=== PATIENT | female | born 1955 | race Caucasian/White ===

== ENCOUNTER 2018-02-17 12:57 | Emergency (ER) | payer MEDICARE, OTHER, MEDICAID ==
[2018-02-17 13:31] VITALS: RESP 18
[2018-02-17] MEDS ORDERED: KETOROLAC TROMETHAMINE 30 MG/ML SOL IM ONE (13:56)
[2018-02-17] MEDS ORDERED: KETOROLAC TROMETHAMINE 30 MG/ML SOL ONE (13:57)
[2018-02-17] MEDS ORDERED: CYCLOBENZAPRINE 10 MG TAB PO ONE (14:01)
[2018-02-17] MEDS ORDERED: CYCLOBENZAPRINE 10 MG TAB ONE (14:02)
[2018-02-17 15:56] VITALS: BP 170/106; PULSE 76; O2SAT 100
== END 2018-02-17 14:09 | disposition home or self-care (01) | DRG 556 ==
LOC: ED 12:57
DX: M79.603 Pain in arm, unspecified (principal); M54.2 Cervicalgia; Z72.0 Tobacco use
CPT/HCPCS: 96372; 99282; 99283; J1885; A9270-GY

== ENCOUNTER 2018-02-27 11:13 | Emergency (ER) | payer MEDICARE, OTHER, MEDICAID ==
[2018-02-27 11:20] VITALS: BP 152/79; PULSE 80; RESP 18; TEMP 97; O2SAT 98
== END 2018-02-27 13:09 | disposition short-term general hospital (02) | DRG 125 ==
LOC: ED 11:13
DX: H54.62 Unqualified visual loss, left eye, normal vision right eye (principal); Z94.7 Corneal transplant status; I10 Essential (primary) hypertension
CPT/HCPCS: 99283

== ENCOUNTER 2018-09-18 02:08 | Emergency (ER) | payer MEDICARE, MEDICAID ==
[2018-09-18 02:14] VITALS: RESP 16
[2018-09-18 03:05] LABS: ALBUMIN 3.2 gm/dl (3.4-5.0); BILIRUBIN,TOTAL 0.3 mg/dl (0.2-1.0); CALCIUM 8.6 mg/dl (8.5-10.1); CARBON DIOXIDE 26.5 mEq/L (21-32); CREATININE 0.89 mg/dl (0.60-1.00); POTASSIUM 3.8 mMol/L (3.5-5.1); TOTAL PROTEIN 6.8 gm/dl (6.4-8.2)
[2018-09-18 03:07] LABS: AMPHETAMINES NEGATIVE (NEGATIVE); BARBITUATES NEGATIVE (NEGATIVE); BENZODIAZEPINES NEGATIVE (NEGATIVE); CANNABINOL(THC) NEGATIVE (NEGATIVE); COCAINE(COC) NEGATIVE (NEGATIVE); METHADONE NEGATIVE (NEGATIVE); METHAMPHETAMINES NEGATIVE (NEGATIVE); OPIATES(OPI) NEGATIVE (NEGATIVE); OXYCODONE(OXY) NEGATIVE (NEGATIVE); PROPOXYPHENE(PPX) NEGATIVE (NEGATIVE); TRICYCLIC ANTIDEPRESSANTS POSITIVE (NEGATIVE)
[2018-09-18 03:48] VITALS: BP 166/91; PULSE 99; TEMP 96.4; O2SAT 95
[2018-09-18 04:01] LABS: BASOPHILS % (AUTO) 1 % (0-3); EOSINOPHILS % (AUTO) 2 % (0-9); HEMATOCRIT 40 % (35-47); LYMPHOCYTES % (AUTO) 36.2 % (10-50); MEAN CORPUSCULAR HEMOGLOBIN 32.2 pg (27.0-32.0); MEAN CORPUSCULAR HGB CONC 32.8 gm/dl (32.0-36.0); MEAN CORPUSCULAR VOLUME 98 fL (81-99); MONOCYTES % (AUTO) 8.7 % (0-12); NEUTROPHILS % (AUTO) 51.8 % (37-80)
[2018-09-18] MEDS ORDERED: DIPHENHYDRAMINE 25 MG CAP PO ONE (04:12)
[2018-09-18] MEDS ORDERED: HALOPERIDOL 1 MG TAB PO ONE (04:14)
[2018-09-18] MEDS ORDERED: DIPHENHYDRAMINE 25 MG CAP ONE (04:15)
[2018-09-18] MEDS ORDERED: HALOPERIDOL 1 MG TAB ONE (04:20)
== END 2018-09-18 04:31 | disposition home or self-care (01) | DRG 887 ==
LOC: ED 02:08
DX: F51.04 Psychophysiologic insomnia (principal); I10 Essential (primary) hypertension
CPT/HCPCS: 36415; 80053; 80305; 85025; 99282; 99283; A9270-GY